=== PATIENT | male | born 1995 | race Caucasian/White ===

== ENCOUNTER 2017-02-01 23:13 | Emergency (ER) | payer SELFPAY ==
--- NOTE | 2017-02-02 03:25 | ER ---
ADMIT: 02/01/2017 RM/LOC: ER [facility] MR#: [id number] [address] [address] [place] TIA Garcia [address] [place] [id number] Emergency Room Report SEX: M AGE: 21 : 1995 DATE: 02/01/2017 The patient is a 21-year-old male with previous left shoulder dislocation, fell down 2 steps on an outstretched left arm. He felt his left shoulder pop. Exam consistent with anterior fullness with sharp acromioclavicular angle. Refused x-ray. Consented to Toradol, Dilaudid, Reglan and Xylocaine intra- articular injection. While sitting up on the table, felt a clunk and anterior fullness, and AC drop-off vanquished. Able to internally and externally rotate shoulder as well as flex arm. The patient placed in shoulder immobilizer for the next week. Follow up Dr. Pierre for further evaluation. X-ray confirms reduction. Kirk Ahn MD/ kayleen JOB #: [id number] CC: Kirk Ahn MD, Attending Physician Deon Pierre MD, Family Physician Deon Pierre MD
== END 2017-02-02 00:11 | disposition home or self-care (01) ==
LOC: ER 23:13
DX: S43.005A Unspecified dislocation of left shoulder joint, initial encounter (principal); F17.210 Nicotine dependence, cigarettes, uncomplicated; Z90.89 Acquired absence of other organs; Z79.899 Other long term (current) drug therapy; G40.909 Epilepsy, unspecified, not intractable, without status epilepticus; W10.9XXA Fall (on) (from) unspecified stairs and steps, initial encounter

== ENCOUNTER 2017-02-12 09:51 | Inpatient (IN) | payer OTHER ==
[~2017-02-12] VITALS: Ht 185.4 cm; Wt 108.7 kg
--- NOTE | ~2017-02-12 | RESCARESUM ---
"PATIENT: TIA LEONARD D | | [facility] UNIT #: [id number] | [address] [facility] AGE/SEX: 21 M : [birth year] | [address] | [place] [address] ADMIT/REG DATE: 02/12/17 | ROOM: [facility] LOC: ADTC | ADT | Summary of Residential Care Primary Counselor: JESSICA Perez, ROOSEVELT, TOSIN Date of Admission: 02/12/17 Date of Discharge: 02/13/17 Referral Source: Probation [facility] Provider Prior to Admission: None Admitting Diagnosis: F12.20 Cannabis Use Disorder Severe, F13.10 Sedative Use Disorder Mild Discharge Diagnosis: Same Goals Achieved: No goals were achieved. Continued Obstacles to Sobriety/Relapse Issues: Thinking he does not need to or not willing to make changes in his life. Family Issues Addressed: No family issues were addressed as client said his family could not be involved in his treatment. n Individual Therapy n Group Therapy n Educational Series on Substance Abuse n Parents/Significant Others Attended Family Program n Acute Medical Problems During the Course of Treatment n Transferred to Hospital During the Course of Treatment n Accepting of Substance Abuse Problem y Non-accepting of Substance Abuse Problem n Required Psychological or Psychiatric Consultation During the Course of Treatment Completed AA Step # none During This Level of Care Significant Incidences During Treatment: Daly became very angry when he was redirected for puting his feet over the chairs and arguing with staff. Reason For Discharge: n Completed Residential TX Goals and Ready For Next Level of Care n Left Tx Against Medical Advice/Treatment Goals Not Complete n Completed Residential Tx Goals But Refusing Continuing Care Recommendations y Discharged Due to Noncompliance/Treatment Goals not Completed y Discharged Earlier Than Planned Due to: Arguing with staff bellaen asked to stop several times. Continuing Care Plan/Recommendations: n Intensive Partial Care y Sponsor n Partial Care PATIENT: TIA LEONARD | | [facility] UNIT #: [id number] | [address] AGE/SEX: 21 M : [birth year] | [address] | [place] [address] ADMIT/REG DATE: 02/12/17 | [facility] | [facility] | Summary of Residential Care y AA Meetings/NA Meetings n Outpatient n Co-dependency Services n Therapeutic Community y 1/[address] [facility] n Mental Health Therapy n Marriage Counseling n Other Specific Continuing Care Plan: Client had no plan when he left. He could benifit from complying with and completeing a short term residential treatment program and following all recommendations from that facility. PRIMARY COUNSELOR: Kurt Rodriguez, JESSICA, ROSIC, CSAT"
--- NOTE | 2017-02-12 13:43 | NUR ---
IMildred. 1 Hr/Client shared he is glad to be here and has a lot of trust issues. He was discharged from [facility] and walked out one time. appears eager to get and stay clean. Anger is and issue. Denied any trauma and does not want family here.
--- NOTE | 2017-02-12 15:15 | NUR ---
ADMISSION NOTE Client is a 21 y/o single male, referred to treatment by probation and brought here today by his grandfather from their home in [place]. Client states NKMA and brings a home medication, Depakote ER, with him today. Client sates DOC is marijuana, last used this morning when he smoked "two blunts." Client also states that he has abused "pills" particularly codeine, about a year ago. Client was searched, no contraband found. Client did turn in a Mippin cellphone, earbuds, and a bottling machine operator which were stored in the locked cabinet at the [facility] station. Rights/Responsibilities: Copy given and explained to client. Signed and accepted by client. Client oriented to physical lay out of the ADTC unit, given Big Book and admission packet. A Arron was assigned. Yves Gatica
--- NOTE | 2017-02-12 20:34 | NUR ---
Education: 1 Hour. Client attended Gilberto Farris video "Step 5."
--- NOTE | 2017-02-12 22:53 | NUR ---
Client went on a walk for rec, participated in guided meditation, and attended the on unit A.A.Meeting. Client was seen by a doctor. SE: Coming into treatment
--- NOTE | 2017-02-13 05:23 | NUR ---
N) Heladio went on walk for rec,participated in Guided Meditation, attended AA mtg.
--- NOTE | 2017-02-13 05:28 | NUR ---
Bed Note: Client was in bed and motionless at all bed checks.
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
--- NOTE | 2017-02-13 13:11 | NUR ---
PEER REVIEWS 1.5 HRS: Clt participated in peer review process and was able to give open, honest feedback to those receiving a review.
--- NOTE | 2017-02-13 14:22 | NUR ---
Tech Note: Client watched Recovery Issues Part 3. Is working on Getting Started.
--- NOTE | 2017-02-13 15:00 | NUR ---
Counselor Note-Tech came to let me know there was a big argument in the rec room and they were yelling at a counselor. Client followed tech into my office and continued to argue about rules and being told what to do. I confronted him on coming off with some kind of "gangster" front calling people "my nigga" and not being anyone's bitch. It had been reported to me that he and another client had threatened to hit the counselor which client denied. Client's attitude continued to escalate and argue. I told him he needs to go to his room and pack he was being discharged. Client was not ameanable to treatment and was unwilling to be given direction and affecting the group as a whole.
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
--- NOTE | 2017-04-12 17:10 | DS ---
ADMIT: 02/12/2017 RM/LOC: [facility] MR#: [id number] [address] [facility] [address] [place], [place] [address] LUL LEONARD [address] [place] [id number] General Discharge Summary SEX: M AGE: 21 : 1995 ADMISSION DATE: 02/12/2017 DISCHARGE DATE: 02/13/2017 INDICATION FOR HOSPITALIZATION: Lul is a 21-year-old male with a lengthy legal history, admitted to residential level treatment after testing positive for THC on probation for attempted burglary, terroristic threats, and 2 counts of criminal mischief. His drug of choice is cannabis. Second drug of choice is opiates. Please see his admission H and P for further details regarding his history of present illness, past medical history, physical exam, and assessment at the time of hospitalization. HOSPITAL COURSE: On admission, Lul was admitted to our residential level treatment [place]. Depakote level and some basic labs were requested. During treatment, his primary counselor assigned was Kurt Rodriguez. During treatment, he completed no individual or group therapy sessions. He was non accepting of substance abuse problems. There was no family involvement during the family portion of treatment program. During treatment, he was very argumentative with staff and was non accepting of our treatment program rules. He subsequently left treatment due to noncompliance with arguing with staff on several occasions. Aftercare recommendations include completion of residential level treatment program, jail or [facility] house placement with active AA and NA meeting involvement. His prognosis at the time of discharge was very guarded. LABORATORY AND X-RAY DATA: None. MEDICATIONS ON DISCHARGE: None. FINAL DISCHARGE DIAGNOSES: Include: 1. Cannabis use disorder, severe. 2. Opiate use disorder, moderate in remission. 3. Seizure disorder. 4. Tobacco use disorder. 5. Antisocial personality disorder. 6. Intermittent explosive disorder. PROCEDURES: Include failed attempts at drug and alcohol abuse dependency treatment and counseling. Please see his hospital record for further details. Abilio Albarado MD/ kayleen JOB #: [id number] CC: Abilio Albarado MD, Attending Physician UNKNOWN, Family Physician
== END 2017-02-13 15:18 | disposition home or self-care (01) | DRG 897 ==
LOC: ADTC 13:03
PROVIDERS: ADMIT Family Medicine
DX: F12.20 Cannabis dependence, uncomplicated (principal); F11.21 Opioid dependence, in remission; F60.2 Antisocial personality disorder; F17.211 Nicotine dependence, cigarettes, in remission; F63.81 Intermittent explosive disorder; G40.909 Epilepsy, unspecified, not intractable, without status epilepticus; Z56.0 Unemployment, unspecified; Z65.3 Problems related to other legal circumstances